=== PATIENT | male | born 1965 | race Caucasian/White ===

== ENCOUNTER 2017-05-29 10:40 | Emergency (ER) | payer OTHER ==
[~2017-05-29] VITALS: Ht 172.7 cm; Wt 77.0 kg
[~2017-05-29 10:40] MED LIST: ATEN-100 PO; CARB0.5D16 OU; CETI10 OR; CYCL1PAK PO; DILA2TAB2; FLUN25I; LOMO PO; MELO15; OMEP20TA OR; POLY99.0 OP; PRAV20; PRAZ2 PO; SERT-129 OR; VIAG25TA PO; ZOLP10TA3 OR
[2017-05-29 10:42] VITALS: BP 122/66; PULSE 55; RESP 20; TEMP 97.8; O2SAT 98
[2017-05-29] MEDS ORDERED: TETANUS/DIPHTHERIA TOXOID ADULT 0.5 ML VIAL IM ONE (11:30)
[2017-05-29] MEDS ORDERED: DOXYCYCLINE HYCLATE 100 MG CAP PO ONE (11:30)
[2017-05-29] MEDS ORDERED: BUSP10TA PO (11:31)
[2017-05-29] MEDS ORDERED: THER1GEL EACH EYE (11:31)
[2017-05-29] MEDS ORDERED: PRAZ5CAP PO (11:31)
[2017-05-29] MEDS ORDERED: OMEP20TA PO (11:31)
[2017-05-29] MEDS ORDERED: PRAV40TA2 PO (11:31)
[2017-05-29] MEDS ORDERED: CETI10 PO (11:31)
[2017-05-29] MEDS ORDERED: MELO-1 PO (11:31)
[2017-05-29] MEDS ORDERED: FLUO10TA PO (11:31)
[2017-05-29] MEDS ORDERED: ATEN50TA PO (11:31)
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
[2017-05-29] MEDS ORDERED: DOXY100C PO (11:55)
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
== END 2017-05-29 13:12 | disposition home or self-care (01) ==
LOC: NEPC 10:40
DX: S01.112A Laceration without foreign body of left eyelid and periocular area, initial encounter (principal); L02.214 Cutaneous abscess of groin; B95.61 Methicillin susceptible Staphylococcus aureus infection as the cause of diseases classified elsewhere; W22.8XXA Striking against or struck by other objects, initial encounter; Y93.18 Activity, surfing, windsurfing and boogie boarding; Y92.832 Beach as the place of occurrence of the external cause; Z23 Encounter for immunization
CPT/HCPCS: 12011; 70450; 86403; 87070; 87186; 90471; 90714